=== PATIENT | male | born 1950 | race African-American/Black ===

== ENCOUNTER 2023-07-11 08:32 | Outpatient (REF) | payer OTHER, SELFPAY ==
--- NOTE | ~2023-07-11 | XR_ITS ---
EXAMINATION: XR SHOULDER, RIGHT CLINICAL INFORMATION: Pain in right shoulder. COMPARISON: None available. TECHNIQUE: Three views of the right shoulder. FINDINGS: Advanced degenerative changes in the acromioclavicular joint with joint space narrowing and hypertrophic change. Glenohumeral alignment preserved. Mild hypertrophic change along the inferior aspect of the glenohumeral joint. XR/XR shoulder RT min 2V IMPRESSION: Advanced degenerative changes in the acromioclavicular joint.
== END 2023-07-11 08:33 | disposition home or self-care (01) ==
LOC: HO.HOSX 08:32
PROVIDERS: Visit Provider Physician Assistant
DX: M24.111 Other articular cartilage disorders, right shoulder (principal)
CPT/HCPCS: 73030; 99202

== ENCOUNTER 2023-07-11 08:32 | Outpatient (AMB) | payer OTHER, SELFPAY ==
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
[2023-07-11 08:48] VITALS: BMI 31.9
== END 2023-07-11 09:27 | disposition home or self-care (01) ==
PROVIDERS: Visit Provider Physician Assistant
DX: S46.811A Strain of other muscles, fascia and tendons at shoulder and upper arm level, right arm, initial encounter (principal)
CPT/HCPCS: 99203

== ENCOUNTER 2023-08-13 10:00 | Outpatient (RCR) | payer OTHER, MEDICARE, SELFPAY ==
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
--- NOTE | 2023-09-13 09:33 | MHC.PT.DC ---
[facility] [place] Office [place] Office [place] Office [address] 140 [facility] [phone] F: [phone] F: [phone] F: [phone] F: [phone] Physical Therapy Discharge Report Diagnosis: This is a 72 yo male presenting to skilled PT with a script for strain of other muscles, fascia and tendons at shoulder. Date of Surgery: Date of Evaluation: 07/30/23 Date of Discharge: 09/13/23 Treatments to Date: 5 Cancellations to Date: 0 No Shows to Date: 0 Discharge Status: Patient Elected to Stop Recommend MD Follow-up Discharge Summary: 08/12: Pt has come to 5 visits of PT, he does not feel like he is getting better and does not feel like PT is the answer at this point. He is returning to ortho this week. I am putting him on a PT hold at this time as he is not progressing. ROM and strength assessments noted shoulder MMT is grossly 4/5 flexion, abd, 4- ER, 4+ IR. Shoulder AROM is flexion 146, abduction 80, ER 60 in neutral. Educated on HEP to continue in the mean time unless pain further increases. Electronically signed by: Shelbie Brown PT Please sign and return to therapist. Thank you for your referral.
--- NOTE | 2023-09-13 09:36 | MHC.PT.DC ---
[facility] [place] Office [place] Office [place] Office [address] 140 [facility] [phone] F: [phone] F: [phone] F: [phone] F: [phone] Physical Therapy Discharge Report Diagnosis: This is a 72 yo male presenting to skilled PT with a script for strain of other muscles, fascia and tendons at shoulder. Date of Surgery: Date of Evaluation: 07/30/23 Date of Discharge: 09/13/23 Treatments to Date: 5 Cancellations to Date: 0 No Shows to Date: 0 Discharge Status: Patient Elected to Stop Recommend MD Follow-up Discharge Summary: 08/12: Pt has come to 5 visits of PT, he does not feel like he is getting better and does not feel like PT is the answer at this point. He is returning to ortho this week. I am putting him on a PT hold at this time as he is not progressing. ROM and strength assessments noted shoulder MMT is grossly 4/5 flexion, abd, 4- ER, 4+ IR. Shoulder AROM is flexion 146, abduction 80, ER 60 in neutral. Educated on HEP to continue in the mean time unless pain further increases. Electronically signed by: Shelbie Brown PT Please sign and return to therapist. Thank you for your referral.
== END 2023-09-13 09:36 | disposition home or self-care (01) ==
LOC: HO.PTCHIC 10:00
PROVIDERS: PCP Family Medicine; Visit Provider Physician Assistant
DX: S46.811D Strain of other muscles, fascia and tendons at shoulder and upper arm level, right arm, subsequent encounter (principal)
CPT/HCPCS: 97110; 97140; 97162

== ENCOUNTER 2023-08-15 09:16 | Outpatient (AMB) | payer OTHER, SELFPAY ==
--- NOTE | 2023-08-15 09:21 | MHC.OFFVIS ---
Vital Signs 08/15/23 09:31 Height 5 ft 8 in Weight 210 lb BMI 31.9 Intake Visit Reasons: O/V WC DOI 06/15 RT Shoulder Intake Note: Paz a 72 year old male who presents today for a follow up of right shoulder injury, DOI 06/16/23. Xray updated. Patient reports he has a PT session yesterday and is not helping. He is requesting to have an MRI. He is currently working light duty at another facility due to accommodation reasons. Allergies caffeine Allergy (Verified 08/15/23 09:31) heart palpations, fatigue Medication List - Last Reconciled 08/15/23 by iJna Robledo PA-C amlodipine 10 mg PO DAILY losartan-hydrochlorothiazide 100-25 mg 1 tab PO DAILY metoprolol succinate ER 50 mg PO DAILY naproxen 500 mg PO BID 30 days potassium chloride 20 mEq PO DAILY rosuvastatin 40 mg PO DAILY HPI HPI O/V WC DOI 06/15 RT Shoulder: Details: 72-year-old male who returns to the office today for a follow-up of right shoulder injury at work, 06/16/23. He reports he has pain and weakness in his hand that radiates up to his elbow and makes him unable to lift items. He has tried and failed physical therapy. He is currently working light duty at another facility due to accommodation reasons. [facility] Social History (Updated 07/11/23 @ 08:43 by Louise Argueta Lucille) Patient Tobacco Use Status: Never used Tobacco Current occupational status: employed Current occupation: RN, right hand dominant Review of Systems Const All systems reviewed & are unremarkable except as noted in HPI and below Physical Exam Vital Signs: BMI result Body Mass Index 31.9 Const General: cooperative, healthy appearing, comfortable, no acute distress, well developed and alert Orientation/consciousness: patient oriented x3 HEENT Head: Yes normal to inspection, Yes normocephalic and Yes atraumatic Eyes General: appearance normal, both eyes and all related structures Resp Effort & Inspection: normal respiratory effort and able to speak in complete sentences Cardio Rate: regular rate Peripheral pulses: Peripheral pulses 2+ throughout GI Palpation (GI): Soft to palpation Skin Lesions: no lesions Rashes: no rashes Neuro General: patient oriented x3 Extrem Other: Right shoulder normal to inspection. Forward flexion to 175 with mild discomfort, external rotation to 90, internal rotation to S1. Significant weakness with RTC strength on right when compared to the contralateral side. Negative Padilla and cross body abduction. NVI. Assessment & Plan Assessment & Plan (1) Rotator cuff syndrome of right shoulder: Code(s): M75.101 - Unspecified rotator cuff tear or rupture of right shoulder, not specified as traumatic Category: Medical Plan An MRI of the right shoulder was ordered to further evaluate the integrity his of RTC. He will remain out of work till he sees me back in the office to determine the next step in his treatment. Orders: Orders MR shoulder RT w con Today M75.101 - Unspecified rotator cuff tear or rupture of right shoulder, not specified as traumatic Patient Instructions: Scribed for Jina Robledo PA-C, by Erik Feliz senior medical technologist, on 08/15/2023 at 9:00 AM EST.? I, Jina Robledo PA-C, have personally reviewed and agree with the information entered by the scribe. Coding Level of Care Code Est Pt Level 3 (96995) Diagnoses Rotator cuff syndrome of right shoulder M75.101
[2023-08-15 09:31] VITALS: BMI 31.9
== END 2023-08-15 11:18 | disposition home or self-care (01) ==
PROVIDERS: Visit Provider Physician Assistant
DX: M75.101 Unspecified rotator cuff tear or rupture of right shoulder, not specified as traumatic (principal)
CPT/HCPCS: 99213

== ENCOUNTER → 2023-08-15 09:16 | Outpatient (BNVA) | payer OTHER, SELFPAY | PROVIDERS: Visit Provider Physician Assistant | DX: M75.101 Unspecified rotator cuff tear or rupture of right shoulder, not specified as traumatic (principal) | CPT/HCPCS: 99212 ==

== ENCOUNTER 2023-10-01 11:44 | Outpatient (AMB) | payer OTHER, SELFPAY ==
--- NOTE | 2023-10-01 11:47 | A.OFFVIS_ITS ---
Intake Visit Reasons: OV- RT shoulder MRI review Intake Note: Rich is a 73 year old male who presents today for an MRI review of his right shoulder. On 06/16/23 he was helping to lift a patient, after this he felt an onset of shoulder pain. Patient reports worsening shoulder pain Allergies caffeine Allergy (Verified 08/15/23 09:31) heart palpations, fatigue HPI HPI OV- RT shoulder MRI review: Details: Rich is a 73 year old male who presents today for an MRI review of his right shoulder. On 06/16/23 he was helping to lift a patient, after this he felt an onset of shoulder pain. It began worsening and worsening to the point that he is having a difficult time lifting anything with his right hand. He is right- hand dominant. He has done physical therapy which she has not been helpful. He would like to get back to work. [facility] Social History (Updated 07/11/23 @ 08:43 by Louise Argueta Lucille) Patient Tobacco Use Status: Never used Tobacco Current occupational status: employed Current occupation: RN, right hand dominant Physical Exam Extrem Other: 4/5 empty can on the right External rotation to 35 degrees Negative lift-off Forward flexion to 140 No AC joint tenderness to palpation Results Reviewed Results Reviewed: I personally reviewed relevant MRI IMPRESSION: 1. Supraspinatus tendon full-thickness tear. Accompanying reactive bursitis. 2. Infraspinatus and subscapularis tendinosis. 3. Proximal long head biceps tendinosis. 4. Posterior superior labral degeneration and likely old injury/tear. 5. Moderate acromioclavicular degenerative joint disease. Assessment & Plan Assessment & Plan (1) Rotator cuff tear: Code(s): M75.100 - Unspecified rotator cuff tear or rupture of unspecified shoulder, not specified as traumatic Category: Medical Plan: This is a 73-year-old gentleman who has a work-related rotator cuff tear. He is weak on exam and imaging demonstrates a full-thickness disruption of the supraspinatus. I recommend surgical intervention. I outlined the problem and the options for treatment including nonoperative and operative management. I described the risks, benefits and alternatives including, but not limited to, the risk of stiffness, infection, need for further surgery as well as delayed return to work. He will think about it and let me know as he is apprehensive. Is 73 but is active and healthy. Coding Level of Care Code Est Pt Level 4 (40825) Diagnoses Rotator cuff tear M75.100
== END 2023-10-01 14:56 | disposition home or self-care (01) ==
PROVIDERS: PCP Family Medicine; Visit Provider Orthopaedic Surgery
DX: S46.011A Strain of muscle(s) and tendon(s) of the rotator cuff of right shoulder, initial encounter (principal)
CPT/HCPCS: 99214

== ENCOUNTER → 2023-10-01 11:44 | Outpatient (BNVA) | payer OTHER, SELFPAY | PROVIDERS: PCP Family Medicine; Visit Provider Orthopaedic Surgery | DX: M75.101 Unspecified rotator cuff tear or rupture of right shoulder, not specified as traumatic (principal) | CPT/HCPCS: 99212 ==

== ENCOUNTER 2023-10-12 11:03 | Outpatient (AMB) | payer OTHER, SELFPAY ==
[2023-10-12 11:04] VITALS: BMI 31.9
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
== END 2023-10-12 11:25 | disposition home or self-care (01) ==
PROVIDERS: PCP Family Medicine; Visit Provider Orthopaedic Surgery
DX: S46.011A Strain of muscle(s) and tendon(s) of the rotator cuff of right shoulder, initial encounter (principal)
CPT/HCPCS: 99214

== ENCOUNTER → 2023-10-12 11:03 | Outpatient (BNVA) | payer OTHER, SELFPAY | PROVIDERS: PCP Family Medicine; Visit Provider Orthopaedic Surgery | DX: M75.101 Unspecified rotator cuff tear or rupture of right shoulder, not specified as traumatic (principal) | CPT/HCPCS: 99212 ==

== ENCOUNTER 2023-11-02 | Outpatient (REF) | payer MEDICARE, SELFPAY ==
--- NOTE | 2023-11-02 | ECG_ITS ---
Test Reason : PREOP Blood Pressure : / mmHG Vent. Rate : 062 BPM Atrial Rate : 062 BPM P-R Int : 206 ms QRS Dur : 112 ms QT Int : 402 ms P-R-T Axes : 052 -17 075 degrees QTc Int : 408 ms Normal sinus rhythm Nonspecific T wave abnormality Abnormal ECG No previous ECGs available Referred By: Candelaria Beatty Electronically Signed By:APOLONIA BUSBY
[2023-11-02 10:08] VITALS: BP 138/77; PULSE 63; RESP 16; O2SAT 96; BMI 33.1
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
[2023-11-02 11:43] LABS: Hematocrit 42.9 % (42.0-52.0); Hemoglobin 14.2 g/dl (14.0-18.0); Mean Corpuscular HGB Conc 33.1 g/dl (31.0-36.0); Mean Corpuscular Hemoglobin 29.2 pg (27.0-33.0); Mean Corpuscular Volume 88.1 fL (80.0-98.0); Platelet Count 149 X10*3/uL (160-400); Red Blood Count 4.87 X10*6/uL (4.60-5.80); Red Cell Distribution Width 13.1 % (11.0-16.0); White Blood Count 4.5 X10*3/uL (4.8-10.8)
[2023-11-02 12:31] LABS: Anion Gap 9 (12-20); Blood Urea Nitrogen 13 mg/dL (9-16); Calcium 9.5 mg/dL (8.4-10.2); Carbon Dioxide 31 mmol/L (22-29); Chloride 104 mmol/L (96-108); Creatinine Clr Calc Pharmacy 88.9; Estimated Glomerular Filt Rate > 60; Glucose Random 95 mg/dL (60-115); Potassium 3.4 mmol/L (3.3-5.1); Sodium 141 mmol/L (135-145)
--- OUTSIDE RECORDS SUMMARY | 2024-02-01 11:22 | XMS_ITS | Data Portability ---
Author Organization [facility], [address] Address [address] [place] [address] Care Team Providers [employer] Officer Name Role Phone DIMAS RODRIGUEZ Digital Media Planner Assessment No assessment recorded. Plan of Treatment Reminders Order Date Submit Date Provider Last Modified By Organization Details Last Modified Time Details Appointments None recorded. Lab None recorded. Referral None recorded. Procedures None recorded. Surgeries None recorded. Imaging XR, shoulder, 2 or more view - pain right shoulder after helping somebody. lifting. need to rule out any acute fracture or displaceme nt. 2023 024 [facility] (Imaging), [address] [place], [address], 11:49:04 Medication Orders naproxen 500 mg tablet 2023 024 [id number] [address], [place], [id number], 17:44:53 Patient TargetsNo targets recorded. Patient Instructions Encounter Date Encounter Id Patient Instructions Last Modified By Organization Details Last Modified Time 06/16/2023 [id number] shoulder pain: care instructions [email or web address] Not available 06/16/2023 17:44:18 Reason for Referral None Reported. Results Created Date Observation Date Name Description Value Unit Range Abnormal Flag Note LastModifiedBy Organization Detail LastModifiedTime 06/18/1906/17/2023 XR, shoul marissa, 2 or more view No observ ation record ed. CORINNE Not Available 2023 15:53:40 06/18/19 24 06/17/2023 XR, shoul marissa, 2 or more view No observ ation record ed. [facility] [address] [place], [address], 06/18/2023 18:30:51 Result Notes None recorded. Problems Name Problem SNOMED Code Status Onset Date Resolution Date Notes Provider Name and Address Organization Details Recorded Time Pain of right shoulder joint [id number] 00 Active 2023 David Torres, [employer] [address] , [place], [address], [place] - [facility] 17:42:37 Problem Notes None recorded. Procedures Surgical History None recorded. Imaging Results Imaging Date Name Status LastModified by Organiz ation Details LastModified Time 06/17/2023 XR, shoulder, 2 or more view completed [facility] Information not available 06/18/2023 15:53:40 06/17/2023 XR, shoulder, 2 or more view completed [facility] [address] [place], [address], 06/18/2023 18:30:51 Procedure Notes None recorded. Medical Equipment None Reported. Allergies Allergen ID Allergen Name Allergen Category Reaction Reaction Severity Criticality Documentation Date Start Date Code Code System Note Provider Name and Address Organization Details Recorded Time 202017 caffeine food,medi cation Not available Not available Not available 06/16/2023 1886 [facility] Maxine whalen [place] - [facility] 17:21:02 Medications Name Sig Start Date Stop Date Status Note LastModified by Organization Details LastModified Time neomycin-polym yxin-hydrocort 3.5 mg/mL-10,000 unit/mL-1 % ear solution INSTILL 3 DROPS IN BOTH EARS FOUR TIMES DAILY FOR 10 DAYS active Not Available Not Available No t Available metoprolol succinate ER 50 mg tablet,extende d release 24 hr TAKE 1 TABLET BY MOUTH DAILY active Not Available Not Available No t Available atovaquone 250 mg-proguanil 100 mg tablet TAKE 1 TABLET BY MOUTH 1 TO 2 DAYS PRIOR TO TRAVEL TO [facility]. THEN TAKE 1 TABLET BY MOUTH DAILY WHILE ON TRIP AND THEN FOR ONE WEEK AFTER RETURNING . active Not Available Not Available No t Available losartan 100 mg-hydrochloro thiazide 25 mg tablet TAKE 1 TABLET BY MOUTH DAILY active Not Available Not Available No t Available tamsulosin 0.4 mg capsule TAKE 1 CAPSULE BY MOUTH EVERY DAY active Not Available Not Available No t Available amlodipine 10 mg tablet TAKE 1 TABLET BY MOUTH DAILY active Not Available Not Available No t Available neomycin-polym yxin-dexameth 3.5 mg/mL-10,000 unit/mL-0.1% eye drops SHAKE LIQUID AND INSTILL 1 DROP IN BOTH EYES FOUR TIMES DAILY FOR 2 WEEKS THEN STOP active Not Available Not Available No t Available albuterol sulfate HFA 90 mcg/actuation aerosol inhaler INHALE 2 PUFFS INTO THE LUNGS EVERY 4 HOURS NEEDED FOR COUGH OR WHEEZING active Not Available Not Available No t Available fluticasone propionate 50 mcg/actuation nasal spray,suspensi on SHAKE LIQUID AND USE 2 SPRAYS IN EACH NOSTRIL DAILY active Not Available Not Available No t Available naproxen 500 mg tablet Take 1 tablet twice a day by oral route with meal(s) for 7 days, for pain. 2023 active Not Available Not Available Not Avai lable rosuvastatin 40 mg tablet TAKE 1 TABLET BY MOUTH DAILY active Not Available Not Available No t Available Vitals Date Recorded Body height Body mass index (BMI) Body weight Body temperature Oxygen saturation Oxygen saturation in Arterial blood by Pulse oximetry Heart rate Respiratory rate Systolic blood pressure Diastolic blood pressure Provider Name and Address Organization Details Last Updated DateTime 4 172.72 cm 33.5 kg/m2 73582.3 2 g 98.5 [degF] 95 % 95 % 79 /min 18 /min 143 mm[Hg] 76 mm[Hg] Maxine MONREAL - [facility] 17:23:44 Social History Question Answer Notes LastModified by Organizat ion Details LastModified Time Tobacco Smoking Status Never Smoker JOCELIN Tsang [facility] 06/16/2023 17:21:47 What Is Your Level Of Alcohol Consumption? None [email or web address] Information not available 06/16/2023 Have You Had A Flu Shot This Season? No [email or web address] Information not available 06/16/2023 If No, Would You Like A Flu Shot Today? No [email or web address] Information not available 06/16/2023 Have You Had Direct Contact, Or Contact During Intimacy, With Monkeypox Rash, Scabs, Or Body Fluids From A Person With Monkeypox? No [email or web address] Information not available 06/16/2023 What Was The Date Of Your Most Recent Tobacco Screening? 06/16/2023 [email or web address] Information not available 06/16/2023 Do You Use Any Illicit Or Recreational Drugs? No [email or web address] Information not available 06/16/2023 Have You Recently Traveled Abroad? No [email or web address] Information not available 06/16/2023 Do You Or Have You Ever Used Any Other Forms Of Tobacco Or Nicotine? No [email or web address] Information not available 06/16/2023 Sex: Unknown Functional Status None recorded. Mental Status None recorded. Family History Nothing Reported. Medical History No medical history recorded. Past Encounters Encounter ID Performer Location Encounter Start Date Encounter Closed Date Diagnosis/Indication Diagnosis SNOMED-CT Code Diagnosis ICD10 Code [id number] [address] [facility] [place] [address] 09/22/2020 18:08:27 09/22/2020 19:54:34 [id number] [address] [facility] [place] [address] 08/30/2021 08:07:46 08/30/2021 09:02:18 [id number] [place] [address] [facility] [place] [address] 06/16/2023 17:15:11 06/16/2023 17:45:29 Pain of right shoulder joint [id number] M25.511 Health Concerns Section Related Observation LastModified by Organization Detai ls LastModified Time None Recorded Concern Status LastModified by Organization Details LastModified Time None Recorded Advance Directives Directive None Recorded Payers Encounter Date Sequence Insurance Name Policy Number Policy Alvarado Covered Member ID Alvarado Member ID Guarantor Name 09/22/2020 1 [facility] (MEDICARE REPLACEMENT/A DVANTAGE - PPO) [id number] Paz Onofre [id number] Paz Onofre 08/30/2021 1 [facility] (MEDICARE REPLACEMENT/A DVANTAGE - PPO) [id number] Zak Umesh Nwafor [id number] Zak Nwafor 06/16/2023 [facility] Notes Date Note Type Note Provider Name and Address Organization Details Recorded Time 4 text/html Shoulder UCReported bypatient.source of patient informationInformation obtained from patient; Patient arrived at Urgent Care ambulatory; tried to help somebody by lifting and since then right shoulder hurts. happen two hours ago. Hand Dominance:right Location:right; posterior Quality:aching; sharp; frequent; worsening Severity:moderate; pain level 4/10 Duration:1 days; today Timing:acute Context:lifting; twisting Alleviating Factors:rest Aggravating Factors:lifting; twisting; pushing/pulling; ROM Associated Symptoms:no weakness; no numbness; no tingling; no swelling; no redness; no warmth; no ecchymosis; no catching/locking; no buckling; no grinding; no instability; no drainage; no fever; no chills; no weight loss; no change in bowel/bladder habits;radiation down arm Previous InjuryNo prior injury to affected body part Previous Treatmentnone Prior Imaging:none David Torres NP [address] [place], [address], [place] - [facility] 06/16/2023 17:45:21
== END 2023-11-02 00:01 ==
LOC: HO.PAT
PROVIDERS: Nurse Practitioner; PCP Family Medicine; Visit Provider Orthopaedic Surgery
DX: M75.121 Complete rotator cuff tear or rupture of right shoulder, not specified as traumatic (principal); Z01.812 Encounter for preprocedural laboratory examination
CPT/HCPCS: 36415; 80048; 85027; 93005